=== PATIENT | female | born 1990 | race Caucasian/White ===

== ENCOUNTER 2016-09-24 11:12 | Emergency (ER) | payer SELFPAY ==
[2016-09-24] MEDS ORDERED: ONDANSETRON HCL IV 4 MG/2 ML VIAL IV ONE (12:19)
[2016-09-24] MEDS ORDERED: 0.9 % SODIUM CHLORIDE 1,000 ML BAG IV ONE (12:19)
[2016-09-24 12:41] LABS: BASO % 0.5 % (0-6); EOS % 1.7 % (0-6); GRAN % 61.2 % (47-80); HEMOGLOBIN 12.5 gm/dl (11.6-16.0); MEAN CELL VOLUME 89.4 fl (81-97); MEAN CORPUSCULAR HEMOGLOBIN 28.7 pg (27-33); MEAN CORPUSCULAR HGB CONC 32.1 g/dl (32-36); MONO % 5.6 % (0-9); PLATELET COUNT 274 K/uL (130-400); RED BLOOD COUNT 4.36 M/uL (3.80-5.40); RED CELL DISTRIBUTION WIDTH 13.8 % (11.5-14.5)
[2016-09-24 12:51] LABS: ANION GAP 7.8 (7-16); BLOOD UREA NITROGEN 11 mg/dL (7-17); CARBON DIOXIDE 27.2 mmol/L (22-30); CREATININE 0.8 mg/dL (0.52-1.04); EST GLOMERULAR FILTRATION RATE > 60 ml/min; GLUCOSE,RANDOM 82 mg/dL (70-110)
--- NOTE | 2016-09-24 15:12 | Emergency Department Record ---
History of Present Illness - General Chief Complaint: Abdominal Pain Stated Complaint: ABD CRAMPS/WEAKNESS/DIARRHEA Time Seen by Provider: 09/24/16 11:55 Source: Patient Mode of Arrival: Ambulatory Limitations: No limitations - History of Present Illness Initial Comments: pt has been having diarrhea, cramping, bright red blood from rectum, [1/2 cup she states this am] Complaint: Abdominal pain Onset/Timin -: Days(s) Location: LLQ, RLQ Radiation: None Migration to: No migration Severity: Severe Quality: Cramping Consistency: Intermittent Improves With: Nothing Worsens With: Nothing Associated Symptoms: Chills, Diarrhea, Nausea, Other - Related Data LMP Date: 09/04/16 Patient : No Home Medications Medication Instructions Recorded Confirmed Last Taken No Home Med [NO HOME MEDS] 09/24/16 09/24/16 Unknown Allergies Allergy/AdvReac Type Severity Reaction Status Date / Time No Known Drug Allergies Allergy Verified 09/24/16 12:02 Travel Screening - Travel/Exposure Within Last 30 Days Have you traveled within the last 30 days?: No Review of Systems Reviewed: No additional complaints except as noted below Constitutional: Reports: As per HPI. Denies: Chills, Fever, Malaise, Night sweats, Weakness, Weight change Eyes: Reports: As per HPI. Denies: Eye discharge, Eye pain, Photophobia, Vision change ENT: Reports: As per HPI. Denies: Congestion, Dental pain, Ear pain, Epistaxis , Hearing loss, Throat pain Respiratory: Reports: As per HPI. Denies: Cough, Dyspnea, Hemoptysis, Stridor, Wheezes Cardiovascular: Reports: As per HPI. Denies: Arrhythmia, Chest pain, Dyspnea on exertion, Edema, Murmurs, Orthopnea, Palpitations, Paroxysmal nocturnal dyspnea, Rheumatic Fever, Syncope Endocrine: Reports: As per HPI. Denies: Fatigue, Heat or cold intolerance, Polydipsia, Polyuria Gastrointestinal: Reports: As per HPI. Denies: Abdominal pain, Constipation, Diarrhea, Hematemesis, Hematochezia, Melena, Nausea, Vomiting Genitourinary: Reports: As per HPI. Denies: Abnormal menses, Discharge, Dyspareunia, Dysuria, Frequency, Hematuria, Incontinence, Retention, Urgency Musculoskeletal: Reports: As per HPI. Denies: Arthralgia, Back pain, Gout, Joint swelling, Myalgia, Neck pain Skin: Reports: As per HPI. Denies: Bruising, Change in color, Change in hair/ nails, Lesions, Pruritus, Rash Neurological: Reports: As per HPI. Denies: Abnormal gait, Confusion, Headache, Numbness, Paresthesias, Seizure, Tingling, Tremors, Vertigo, Weakness Psychiatric: Reports: As per HPI. Denies: Anxiety, Auditory hallucinations, Depression, Homicidal thoughts, Suicidal thoughts, Visual hallucinations Hematological/Lymphatic: Reports: As per HPI. Denies: Anemia, Blood Clots, Easy bleeding, Easy bruising, Swollen glands Past Medical History - SOCIAL HISTORY Smoking Status: Never smoker Alcohol Use: Occassional Drug Use: None - RESPIRATORY Hx Respiratory Disorders: No - CARDIOVASCULAR Hx Cardio Disorders: No - NEURO Hx Neuro Disorders: No - GI Hx GI Disorders: No - Hx Genitourinary Disorders: No - ENDOCRINE Hx Endocrine Disorders: No - MUSCULOSKELETAL Hx Musculoskeletal Disorders: No - PSYCH Hx Psych Problems: No - HEMATOLOGY/ONCOLOGY Hx Hematology/Oncology Disorders: No Family Medical History Any Significant Family History?: Yes Hx HTN: Grandparents Physical Exam - General General Appearance: Alert, Oriented x3, Cooperative, Mild distress - Head Head exam: Normal inspection - Eye Eye exam: Normal appearance, PERRL, EOMI Pupils: Normal accommodation - ENT ENT exam: Normal exam, Mucous membranes moist, Normal external ear exam, Normal orophraynx Ear exam: Normal external inspection. negative: External canal tenderness Nasal Exam: Normal inspection. negative: Discharge, Sinus tenderness Mouth exam: Normal external inspection, Tongue normal Teeth exam: Normal inspection. negative: Dental caries Throat exam: Normal inspection. negative: Tonsillar erythema, Tonsillar exudate - Neck Neck exam: Normal inspection, Full ROM. negative: Tenderness - Respiratory Respiratory exam: Normal lung sounds bilaterally. negative: Respiratory distress - Cardiovascular Cardiovascular Exam: Regular rate, Normal rhythm, Normal heart sounds - GI/Abdominal GI/Abdominal exam: Soft, Normal bowel sounds, Tenderness - Rectal Rectal exam: Bloody stool, Heme (+) stool - exam: Deferred - Extremities Extremities exam: Normal inspection, Full ROM, Normal capillary refill. negative: Tenderness - Back Back exam: Reports: Normal inspection, Full ROM. Denies: Muscle spasm, Rash noted, Tenderness - Neurological Neurological exam: Alert, CN II-XII intact, Normal gait, Oriented X3 - Psychiatric Psychiatric exam: Normal affect, Normal mood - Skin Skin exam: Dry, Intact, Normal color, Warm Course Vital Signs 09/24/16 09/24/16 11:55 14:04 Temperature 97.9 F Pulse Rate 80 Pulse Rate [ 69 Pulse Ox Probe] Respiratory 20 20 Rate Blood Pressure 130/97 Blood Pressure 122/88 [Right Arm] Pulse Ox 100 100 Medical Decision Making - Lab Data Result diagrams: 09/24/16 12:36 09/24/16 12:36 Lab Results 09/24/16 09/24/16 Range/Units 12:36 12:36 WBC 6.0 (4.2-12.2) K/uL RBC 4.36 (3.80-5.40) M/uL Hgb 12.5 (11.6-16.0) gm/dl Hct 39.0 (35.0-47.0) % MCV 89.4 (81-97) fl MCH 28.7 (27-33) pg MCHC 32.1 (32-36) g/dl RDW 13.8 (11.5-14.5) % Plt Count 274 (130-400) K/uL MPV 10.0 (7.4-10.4) fl Gran % 61.2 (47-80) % Lymphocytes % 31.0 (16-45) % Monocytes % 5.6 (0-9) % Eosinophils % 1.7 (0-6) % Basophils % 0.5 (0-6) % Sodium 140 (136-145) mmol/L Potassium 3.4 L (3.5-5.1) mmol/L Chloride 105 (98-107) mmol/L Carbon Dioxide 27.2 (22-30) mmol/L Anion Gap 7.8 (7-16) BUN 11 (7-17) mg/dL Creatinine 0.8 (0.52-1.04) mg/dL Estimated GFR > 60 ml/min Random Glucose 82 (70-110) mg/dL Calcium 8.7 (8.5-10.1) mg/dL Disposition Disposition: Discharge Clinical Impression: Rectal bleeding Disposition: Home, Self-Care Condition: (1) Good Instructions: Rectal Bleeding (ED) Additional Instructions: follow up with family doctor and with GI doctor. return sooner if worse. Referrals: TANNER GOMEZ [DOCTOR OF OSTEOPATH] - Forms: Patient Portal Access
== END 2016-09-24 15:34 | disposition home or self-care (01) ==
LOC: ER 11:12
DX: K92.1 Melena (principal); R19.7 Diarrhea, unspecified; R11.0 Nausea; R53.1 Weakness
CPT/HCPCS: 99284 ×2; 96374; 96361; 85025; 80048; 74177; Q9967; J2405; J7030

== ENCOUNTER 2017-09-10 23:39 | Emergency (ER) | payer MEDICAID, OTHER ==
--- NOTE | 2017-09-10 23:54 | Emergency Department Record ---
History of Present Illness - General Chief Complaint: Chest Pain Stated Complaint: CHEST PAIN Time Seen by Provider: 09/10/17 23:47 Source: Patient Mode of Arrival: Ambulatory Limitations: No limitations - History of Present Illness Initial Comments: 27 yo female presents with nausea since waking up this morning. No vomiting but she has remained nauseated with eating or drinking though out the entire day. No fever. No diarrhea. She tried to lay down tonight but the nausea persisted and she felt a heavy feeling in the chest. No shortness of breath. She did try to eat and drink some today but was limited by nausea. No prior past medical history. No family history of premature CAD, SCD, PE, DVT. MD Complaint: Chest pain -: Days(s) (not felt well since 7am) Pain Location: Epigastric Severity: Moderate Quality: Heaviness Consistency: Constant Improves With: Nothing Worsens With: Eating Context: Other ([place] sick all day) Anginal Symptoms: Other (Nausea) Treatments Prior to Arrival: None - Related Data Previous Rx's Medication Instructions Recorded Ondansetron [Zofran Odt] 4 mg PO Q8H #15 tab.rapdis 09/11/17 Allergies Allergy/AdvReac Type Severity Reaction Status Date / Time No Known Drug Allergies Allergy Verified 09/24/16 12:02 Review of Systems Constitutional: Denies: Chills, Fever, Malaise, Weakness Eyes: Denies: Eye discharge ENT: Denies: Congestion, Throat pain Respiratory: Denies: Cough, Dyspnea Cardiovascular: Denies: Chest pain, Syncope Endocrine: Denies: Fatigue Gastrointestinal: Reports: Nausea. Denies: Abdominal pain, Diarrhea Genitourinary: Denies: Dysuria, Urgency Musculoskeletal: Denies: Arthralgia, Back pain, Joint swelling, Myalgia Skin: Denies: Bruising, Change in color, Rash Neurological: Denies: Numbness, Weakness Psychiatric: Denies: Anxiety Hematological/Lymphatic: Denies: Blood Clots, Easy bleeding, Easy bruising, Swollen glands Past Medical History - SOCIAL HISTORY Smoking Status: Never smoker Drug Use: None - RESPIRATORY Hx Respiratory Disorders: No - CARDIOVASCULAR Hx Cardio Disorders: No - NEURO Hx Neuro Disorders: No - GI Hx GI Disorders: No - Hx Genitourinary Disorders: No - ENDOCRINE Hx Endocrine Disorders: No - MUSCULOSKELETAL Hx Musculoskeletal Disorders: No - PSYCH Hx Psych Problems: No - HEMATOLOGY/ONCOLOGY Hx Hematology/Oncology Disorders: No Family Medical History Hx HTN: Grandparents Physical Exam - General General Appearance: Alert, Oriented x3, Cooperative, No acute distress Limitations: No limitations - Head Head exam: Atraumatic, Normal inspection - Eye Eye exam: Normal appearance. negative: Conjunctival injection, Scleral icterus - ENT ENT exam: Normal exam, Mucous membranes moist Ear exam: Normal external inspection Nasal Exam: Normal inspection Mouth exam: Normal external inspection Teeth exam: Normal inspection Throat exam: Normal inspection - Neck Neck exam: Normal inspection, Full ROM. negative: Tenderness - Respiratory Respiratory exam: Normal lung sounds bilaterally. negative: Respiratory distress - Cardiovascular Cardiovascular Exam: Regular rate, Normal rhythm, Normal heart sounds. negative : Diastolic murmur, Systolic murmur - GI/Abdominal GI/Abdominal exam: Soft, Tenderness (mild epigastric). negative: Distended, Guarding, Rebound, Rigid - Rectal Rectal exam: Deferred - exam: Deferred - Extremities Extremities exam: Normal inspection, Full ROM, Normal capillary refill. negative: Tenderness - Back Back exam: Denies: CVA tenderness (R), CVA tenderness (L) - Neurological Neurological exam: Alert, Oriented X3. negative: Motor sensory deficit - Psychiatric Psychiatric exam: Normal affect, Normal mood. negative: Agitated, Anxious - Skin Skin exam: Dry, Intact, Normal color, Warm Course - Reevaluation(s) Reevaluation #1: EKG 23:42 sinus tachycardia 113, intervals normal, axis normal, ST normal, No acute changes except rate otherwise normal ECG 09/11/17 00:28 No acute changes on the CBC The UA is negative The UCG is negative 09/11/17 00:30 Repeat HR 90. Patient is resting comfortably. 09/11/17 00:32 The K was mildly low at 3.2 Replacement ordered. 09/11/17 01:05 After IV hydration the HR is 86bpm EKG#2 NSR, rate 87, intervals normal, axis normal, ST normal. Normal EKG. 09/11/17 01:08 The patient continues to feel greatly improved after the Zofran and IVF We discussed the labs, reasons to return and close follow up Medical Decision Making - Lab Data Result diagrams: 09/10/17 23:56 09/10/17 23:56 Disposition Disposition: Discharge Clinical Impression: Nausea, Hypokalemia Disposition: Home, Self-Care Condition: (1) Good Instructions: Acute Nausea and Vomiting (ED) Additional Instructions: Rest tomorrow and stay well hydrated Return if the symptoms are not well controlled Return if you have any new or concerning symptoms Off work tomorrow. Prescriptions: Ondansetron [Zofran Odt] 4 mg PO Q8H #15 tab.rapdis Forms: Patient Portal Access Time of Disposition: 01:07 Quality - Quality Measures Quality Measures: N/A - Blood Pressure Screening Does Patient Have Any of the Following: No Blood Pressure Classification: Hypertensive Reading Systolic Measurement: 151 Diastolic Measurement: 94 Screening for High Blood Pressure: < Pre-Hypertensive BP, F/U Documented > [ [id number]] Pre-Hypertensive Follow-up Interventions: Referral to alternative/primary care provider.
[2017-09-10] MEDS ORDERED: 0.9 % SODIUM CHLORIDE 1,000 ML BAG IV ONE (23:56)
[2017-09-10] MEDS ORDERED: ONDANSETRON HCL IV 4 MG/2 ML VIAL IV ONE (23:56)
[2017-09-11 00:12] LABS: BASO % 0.6 % (0-6); EOS % 3.3 % (0-6); GRAN % 53.5 % (47-80); HEMATOCRIT 41.6 % (35.0-47.0); HEMOGLOBIN 13.6 gm/dl (11.6-16.0); LYMPH % 36.8 % (16-45); MEAN CELL VOLUME 88.3 fl (81-97); MEAN CORPUSCULAR HEMOGLOBIN 28.9 pg (27-33); MEAN CORPUSCULAR HGB CONC 32.7 g/dl (32-36); MEAN PLATELET VOLUME 9.5 fl (7.4-10.4); MONO % 5.8 % (0-9); PLATELET COUNT 307 K/uL (130-400); RED BLOOD COUNT 4.71 M/uL (3.80-5.40); RED CELL DISTRIBUTION WIDTH 13.1 % (11.5-14.5); URINE APPEARANCE CLEAR; URINE BILIRUBIN NEGATIVE (NEGATIVE); URINE BLOOD NEGATIVE (NEGATIVE); URINE COLOR YELLOW; URINE GLUCOSE (UA) NEGATIVE (NEGATIVE); URINE KETONE NEGATIVE (NEGATIVE); URINE LEUKOCYTE ESTERASE NEGATIVE (NEGATIVE); URINE NITRITE NEGATIVE (NEGATIVE); URINE PROTEIN NEGATIVE (NEGATIVE); URINE UROBILINOGEN 0.2 E.U./dL (0.20 - 1.00); WHITE BLOOD COUNT W/O DIFF 8.7 K/uL (4.2-12.2)
[2017-09-11 00:14] LABS: HCG,QUALITATIVE URINE NEGATIVE (NEGATIVE)
[2017-09-11 00:30] LABS: ALB/GLOB RATIO 1.6 (1.1-1.8); ALBUMIN 4.7 g/dL (4.0-5.0); ALKALINE PHOSPHATASE 77 U/L (35-104); ALT/SGPT 14 U/L (<33); AST/SGOT 17 U/L (10.0-35.0); BLOOD UREA NITROGEN 11 mg/dL (6-20); CREATININE 0.6 mg/dL (0.5-0.9); EST GLOMERULAR FILTRATION RATE > 60 mL/min; GLUCOSE,RANDOM 97 mg/dL (74-109); LIPASE 36 U/L (13-60); TOTAL PROTEIN 7.6 g/dL (6.6-8.7)
[2017-09-11] MEDS ORDERED: POTASSIUM CHLORIDE 10 MEQ TAB PO ONE (00:31)
[2017-09-11] MEDS ORDERED: ONDANSETRON 4 MG ODT TABLET SL ONE (00:58)
== END 2017-09-11 01:20 | disposition home or self-care (01) ==
LOC: ER 23:39
DX: E87.6 Hypokalemia (principal); E07.89 Other specified disorders of thyroid; R11.0 Nausea; R10.13 Epigastric pain
CPT/HCPCS: 99284 ×2; 96374; 83690; 85025; 80053; 81003; 81025; 93005 ×2; 93010 ×2; J2405; J7030